=== PATIENT | male | born 2000 | race Caucasian/White ===

== ENCOUNTER 2018-01-11 03:00 | Emergency (ER) | payer SELFPAY ==
[2018-01-11 03:02] VITALS: BP 138/116
--- NOTE | 2018-01-11 03:09 | ER Report ---
History and Physical Time Seen By MD: 03:06 Hx. of Stated Complaint: [facility] CLEARANCE AND FINGER LACERATION HPI/ROS CHIEF COMPLAINT: Alcohol intoxication/retirement clearance HISTORY OF PRESENT ILLNESS: This is a 19-year-old male. He was drinking heavily tonight. Picked [facility] by [facility]. He does have some bleeding on his hand, uncertain where. He denies any other pain or problems. No other medical history. He denies any pain at this time. Unable to tell me how much she had to drink but it was a lot tonight. Allergies: Coded Allergies: lactose (Verified Allergy, Unknown, 01/11/18) latex (Verified Allergy, Unknown, 01/11/18) Reviewed Nurses Notes: Yes Hx Substance Use Disorder: No Hx Alcohol Use: Yes (ETOH) Constitutional Vital Sign - Last 24 Hours 01/11/18 03:02 Temp 98.0 Pulse 102 Resp 18 B/P (MAP) 138/116 Pulse Ox 91 O2 Delivery Room Air Physical Exam General Appearance: Alert, intoxicated. Cooperative. Eyes: Pupils equal and round, scleral injection present. ENT: Normal oral mucosa. Moist mucous membranes. Neck: Neck is supple and non tender. Respiratory: Chest is non tender, lungs are clear to auscultation. Cardiac: regular rate and rhythm Gastrointestinal: Abdomen is soft and non tender, no masses, bowel sounds normal. Musculoskeletal: Extremities have full range of motion. Skin: He does have a small laceration of the fingertip of the middle finger, non-suturable. Also a small laceration on the thenar area. Both of these of the right hand. These were cleaned and bandaged. DIFFERENTIAL DIAGNOSIS: After history and physical exam differential diagnosis was considered for alcohol intoxication. Medical Decision Making ED Course/Re-evaluation ED Course Cleared to go to retirement. We did bandage the small lacerations which did not need sutures. Last tetanus 2 years ago. Decision to Disposition Date: Jan 11, 2018 Decision to Disposition Time: 03:15 Depart Departure Latest Vital Signs Vital Signs Date Time Temp Pulse Resp B/P (MAP) Pulse Ox O2 Delivery O2 Flow Rate FiO2 01/11/18 03:02 98.0 102 18 138/116 91 Room Air Impression: Primary Impression: Alcohol intoxication Additional Impression: Finger laceration Condition: Improved Disposition: HOME OR SELF-CARE Patient Instructions: Alcohol Intoxication (ED), Hand Laceration Additional Instructions: Wound Care: Wash the wound once a day with soap and water. Dry the wound and apply a small amount of antibiotic ointment with a clean dressing. If the dressing becomes wet or dirty, repeat cleaning and dressing as above. Pain Control: Use Tylenol or ibuprofen for pain. Using and ice pack can help reduce swelling. Problem Qualifiers Primary Impression: Alcohol intoxication Complication of substance-induced condition: uncomplicated Qualified Codes: F10.920 - Alcohol use, unspecified with intoxication, uncomplicated Additional Impression: Finger laceration Encounter type: initial encounter Finger: middle finger Damage to nail status: without damage Foreign body presence: without foreign body Laterality: right Qualified Codes: S61.212A - Laceration without foreign body of right middle finger without damage to nail, initial encounter ROB CAMACHO MD Jan 11, 2018 03:09
== END 2018-01-11 03:21 | disposition home or self-care (01) ==
LOC: EDBD 03:10 → ER 03:10
DX: F10.920 Alcohol use, unspecified with intoxication, uncomplicated (principal); S61.212A Laceration without foreign body of right middle finger without damage to nail, initial encounter
CPT/HCPCS: 99281